=== PATIENT | male | born 1975 | race Caucasian/White ===

== ENCOUNTER 2017-10-29 05:39 | Observation (INO) | payer OTHER ==
[~2017-10-29] VITALS: Ht 167.6 cm; Wt 77.0 kg
[2017-10-29 05:46] VITALS: BP 160/77; PULSE 97; RESP 16; TEMP 98.1; O2SAT 98
[2017-10-29] MEDS ORDERED: ZANT150T2 PO (05:55)
[2017-10-29] MEDS ORDERED: OMEP10SU (05:55)
[2017-10-29] MEDS ORDERED: SODIUM CHLOR 0.9% 1000 ML INJ 1,000 ML IV SCH ×2 (05:59→09:43)
[2017-10-29] MEDS ORDERED: ONDANSETRON HCL 4 MG/2 ML VIAL ONE (05:59)
--- NOTE | 2017-10-29 05:59 | PD ---
HPI Chief Complaint: Abdominal Pain Time Seen by Provider: 05:56 Travel History International Travel<30 days: No Contact w/Intl Traveler<30days: No Traveled to known affect area: No History of Present Illness HPI Patient states that he woke up today about 2 hours ago with lower abdominal pain , nausea and vomiting. Pain is described as crampy, sharp, rated as 8 out of 10 , denies any diarrhea. Denies any alleviating or aggravating factors. Denies any associated factors such as fever, rash, neck stiffness, headache, chest pain , back pain. No known drug allergy Past medical history of GERD otherwise patient denies any medical history or surgical history. PFSH Past Medical History GERD: Yes Past Surgical History Surgical History: No Previous Surgery Other Surgery: Yes Social History Alcohol Use: Yes (weekends) Tobacco Use: No Substance Use: No Allergies-Medications (Allergen,Severity, Reaction): Coded Allergies: No Known Allergies (Unverified , 10/29/17) Reported Meds & Prescriptions Reported Meds & Active Scripts Active Reported Zantac (Ranitidine HCl) 150 Mg Tab 150 Mg PO DAILY Prilosec (Omeprazole Magnesium) 10 Mg Pow Review of Systems General / Constitutional: No: Fever Eyes: No: Visual changes HENT: No: Headaches Cardiovascular: No: Chest Pain or Discomfort Respiratory: No: Shortness of Breath Gastrointestinal: Positive: Nausea, Abdominal Pain Genitourinary: No: Dysuria Musculoskeletal: No: Pain Skin: No Rash Neurologic: No: Weakness Psychiatric: No: Depression Endocrine: No: Polydipsia Hematologic/Lymphatic: No: Easy Bruising Physical Exam Narrative GENERAL: SKIN: Warm and dry. HEAD: Atraumatic. Normocephalic. EYES: Pupils equal and round. No scleral icterus. No injection or drainage. ENT: No nasal bleeding or discharge. Mucous membranes pink and moist. NECK: Trachea midline. No JVD. CARDIOVASCULAR: Regular rate and rhythm. RESPIRATORY: No accessory muscle use. Clear to auscultation. Breath sounds equal bilaterally. GASTROINTESTINAL: Abdomen soft, nondistended, patient has tenderness to percussion along McBurney's point as well as suprapubically and left lower quadrant. However the patient does not exhibit any rigidity, guarding, or rebound. MUSCULOSKELETAL: Extremities without clubbing, cyanosis, or edema. No obvious deformities. NEUROLOGICAL: Awake and alert. No obvious cranial nerve deficits. Motor grossly within normal limits. Five out of 5 muscle strength in the arms and legs. Normal speech. PSYCHIATRIC: Appropriate mood and affect; insight and judgment normal. Data Data Last Documented VS Vital Signs Date Time Temp Pulse Resp B/P (MAP) Pulse Ox O2 Delivery O2 Flow Rate FiO2 10/29/17 06:05 89 16 126/90 (102) 99 Room Air 10/29/17 05:46 98.1 Orders Orders Ondansetron Inj (Zofran Inj) (10/29/17 05:59) Complete Blood Count With Diff (10/29/17 05:59) Comprehensive Metabolic Panel (10/29/17 05:59) Lipase (10/29/17 05:59) Urinalysis - C+S If Indicated (10/29/17 05:59) Ct Abd/Pel W Iv Contrast(Rout) (10/29/17 05:59) Iv Access Insert/Monitor (10/29/17 05:59) Ecg Monitoring (10/29/17 05:59) Oximetry (10/29/17 05:59) Morphine Inj (Morphine Inj) (10/29/17 06:00) Ondansetron Inj (Zofran Inj) (10/29/17 06:00) Sodium Chlor 0.9% 1000 Ml Inj (Ns 1000 M (10/29/17 05:59) Labs Laboratory Tests Test 10/29/17 06:05 White Blood Count 14.7 TH/MM3 Red Blood Count 5.46 MIL/MM3 Hemoglobin 16.6 GM/DL Hematocrit 48.5 % Mean Corpuscular Volume 88.7 FL Mean Corpuscular Hemoglobin 30.5 PG Mean Corpuscular Hemoglobin Concent 34.4 % Red Cell Distribution Width 13.0 % Platelet Count 310 TH/MM3 Mean Platelet Volume 7.2 FL Neutrophils (%) (Auto) 67.6 % Lymphocytes (%) (Auto) 22.9 % Monocytes (%) (Auto) 7.4 % Eosinophils (%) (Auto) 1.6 % Basophils (%) (Auto) 0.5 % Neutrophils # (Auto) 10.0 TH/MM3 Lymphocytes # (Auto) 3.4 TH/MM3 Monocytes # (Auto) 1.1 TH/MM3 Eosinophils # (Auto) 0.2 TH/MM3 Basophils # (Auto) 0.1 TH/MM3 CBC Comment DIFF FINAL Differential Comment Total Protein 7.5 GM/DL Alkaline Phosphatase 31 U/L Total Bilirubin 1.0 MG/DL MDM Medical Decision Making Medical Screen Exam Complete: Yes Emergency Medical Condition: Yes Medical Record Reviewed: Yes Differential Diagnosis Appendicitis versus colitis versus diverticulitis versus UTI Narrative Course CBC shows leukocytosis of 14.7 but without any left shift, no anemia, normal platelet count Patient signed out to oncoming physician pending CT results and further lab results Diagnosis Primary Impression: Lower abdominal pain All Lagunas MD Oct 29, 2017 05:58
[2017-10-29] MEDS ORDERED: ONDANSETRON HCL 4 MG/2 ML VIAL IVP ONE (06:00)
[2017-10-29] MEDS ORDERED: MORPHINE SULFATE 4 MG/ML INJ IV PUSH ONE (06:00)
[2017-10-29 06:05] VITALS: BP 126/90; PULSE 89; RESP 16; O2SAT 99
[2017-10-29 06:23] LABS: BASOPHIL # 0.1 TH/MM3 (0-0.2); BASOPHIL % 0.5 % (0.0-2.0); EOSINOPHIL # 0.2 TH/MM3 (0-0.4); EOSINOPHIL % 1.6 % (0.0-4.0); HEMATOCRIT 48.5 % (39.0-51.0); HEMOGLOBIN 16.6 GM/DL (13.0-17.0); LYMPH % 22.9 % (9.0-44.0); LYMPHOCYTE # 3.4 TH/MM3 (1.0-4.8); MEAN CELL VOLUME 88.7 FL (80.0-100.0); MEAN CORPUSCULAR HEMOGLOBIN 30.5 PG (27.0-34.0); MEAN CORPUSCULAR HGB CONC 34.4 % (32.0-36.0); MEAN PLATELET VOLUME 7.2 FL (7.0-11.0); MONO % 7.4 % (0.0-8.0); MONOCYTE # 1.1 TH/MM3 (0-0.9); NEUT % 67.6 % (16.0-70.0); PLATELET COUNT 310 TH/MM3 (150-450); RED BLOOD COUNT 5.46 MIL/MM3 (4.50-5.90); WHITE BLOOD COUNT 14.7 TH/MM3 (4.0-11.0)
[2017-10-29 06:35] LABS: ALKALINE PHOSPHATASE 31 U/L (45-117); TOTAL PROTEIN 7.5 GM/DL (6.4-8.2)
[2017-10-29 06:54] LABS: ALBUMIN 4.3 GM/DL (3.4-5.0); ALT (GPT) 33 U/L (12-78); AST (GOT) 26 U/L (15-37); BICARBONATE 23.4 MEQ/L (21.0-32.0); BLOOD UREA NITROGEN 16 MG/DL (7-18); CALCIUM 8.9 MG/DL (8.5-10.1); CHLORIDE 106 MEQ/L (98-107); CREATININE 1.29 MG/DL (0.60-1.30); GLOMERULAR FILTRATION RATE 62 ML/MIN (>89); GLUCOSE,RANDOM 92 MG/DL (74-106); SODIUM (NA) 139 MEQ/L (136-145)
[2017-10-29] MEDS ORDERED: IOHEXOL 350 MG/ML 10 ML VIAL (for RAD DIAG) IVCONTRAST ONE (07:33)
--- NOTE | 2017-10-29 07:39 | PD ---
Physical Exam Narrative Patient was seen by ED physician and signed out to me. Data Data Last Documented VS Vital Signs Date Time Temp Pulse Resp B/P (MAP) Pulse Ox O2 Delivery O2 Flow Rate FiO2 10/29/17 06:05 89 16 126/90 (102) 99 Room Air 10/29/17 05:46 98.1 Orders Orders Ondansetron Inj (Zofran Inj) (10/29/17 05:59) Complete Blood Count With Diff (10/29/17 05:59) Comprehensive Metabolic Panel (10/29/17 05:59) Lipase (10/29/17 05:59) Urinalysis - C+S If Indicated (10/29/17 05:59) Ct Abd/Pel W Iv Contrast(Rout) (10/29/17 05:59) Iv Access Insert/Monitor (10/29/17 05:59) Ecg Monitoring (10/29/17 05:59) Oximetry (10/29/17 05:59) Morphine Inj (Morphine Inj) (10/29/17 06:00) Ondansetron Inj (Zofran Inj) (10/29/17 06:00) Sodium Chlor 0.9% 1000 Ml Inj (Ns 1000 M (10/29/17 05:59) Iohexol 350 Inj (Omnipaque 350 Inj) (10/29/17 07:33) Metoclopramide Inj (Reglan Inj) (10/29/17 08:00) Diphenhydramine Inj (Benadryl Inj) (10/29/17 08:00) Labs Laboratory Tests Test 10/29/17 06:05 10/29/17 08:11 White Blood Count 14.7 TH/MM3 Red Blood Count 5.46 MIL/MM3 Hemoglobin 16.6 GM/DL Hematocrit 48.5 % Mean Corpuscular Volume 88.7 FL Mean Corpuscular Hemoglobin 30.5 PG Mean Corpuscular Hemoglobin Concent 34.4 % Red Cell Distribution Width 13.0 % Platelet Count 310 TH/MM3 Mean Platelet Volume 7.2 FL Neutrophils (%) (Auto) 67.6 % Lymphocytes (%) (Auto) 22.9 % Monocytes (%) (Auto) 7.4 % Eosinophils (%) (Auto) 1.6 % Basophils (%) (Auto) 0.5 % Neutrophils # (Auto) 10.0 TH/MM3 Lymphocytes # (Auto) 3.4 TH/MM3 Monocytes # (Auto) 1.1 TH/MM3 Eosinophils # (Auto) 0.2 TH/MM3 Basophils # (Auto) 0.1 TH/MM3 CBC Comment DIFF FINAL Differential Comment Blood Urea Nitrogen 16 MG/DL Creatinine 1.29 MG/DL Random Glucose 92 MG/DL Total Protein 7.5 GM/DL Albumin 4.3 GM/DL Calcium Level 8.9 MG/DL Alkaline Phosphatase 31 U/L Aspartate Amino Transf (AST/SGOT) 26 U/L Alanine Aminotransferase (ALT/SGPT) 33 U/L Total Bilirubin 1.0 MG/DL Sodium Level 139 MEQ/L Potassium Level 3.8 MEQ/L Chloride Level 106 MEQ/L Carbon Dioxide Level 23.4 MEQ/L Anion Gap 10 MEQ/L Estimat Glomerular Filtration Rate 62 ML/MIN Lipase 115 U/L Urine Color YELLOW Urine Turbidity CLEAR Urine pH 6.0 Urine Specific [place] GREATER THAN 1.050 Urine Protein TRACE mg/dL Urine Glucose (UA) NEG mg/dL Urine Ketones 40 mg/dL Urine Occult Blood SMALL Urine Nitrite NEG Urine Bilirubin NEG Urine Urobilinogen LESS THAN 2.0 MG/DL Urine Leukocyte Esterase NEG Urine RBC 2 /hpf Urine WBC 1 /hpf Urine Mucus FEW /lpf Microscopic Urinalysis Comment CULT NOT INDICATED MDM Supervised Visit with ARIEL: No Interpretation(s) 7:38 AM. CBC with WBC 14.7. Normal differential. CMP within normal limits. 8:28 AM. Last Impressions Abdomen/Pelvis CT 10/29/17 0559 Signed Impressions: Service Date/Time: Sunday, October 29, 2017 07:31 - CONCLUSION: Normal examination. Salomon Dorado MD Narrative Course Patient with right lower quadrant abdominal pain and nausea vomiting. Normal saline solution 1 L IV bolus. Zofran 8 mg IV. Reglan 10 mg IV. Benadryl 25 mg IV. Normal saline solution 1 25 cc an hour. Zosyn 3.375 g IV given. Diagnosis Primary Impression: Acute appendicitis Qualified Codes: K35.3 - Acute appendicitis with localized peritonitis Admitting Information Admitting Physician Requests: Admit Yayo Barcenas MD Oct 29, 2017 07:39
[2017-10-29] MEDS ORDERED: METOCLOPRAMIDE HCL 10 MG/2 ML VIAL IV PUSH ONE (08:00)
[2017-10-29] MEDS ORDERED: diphenhydrAMINE HCL 50 MG/ML VIAL IV PUSH ONE (08:00)
--- NOTE | 2017-10-29 08:09 | RADRPT ---
EXAM DATE/TIME: 10/29/2017 07:31 This report includes an Addendum and supersedes previous reports for this exam. [facility] COMPARISON: No previous studies available for comparison. INDICATIONS : Vomiting and epigastric pain. IV CONTRAST: 92 cc Omnipaque 350 (iohexol) IV ORAL CONTRAST: No oral contrast ingested. RADIATION DOSE: 6.34 CTDIvol (mGy) MEDICAL HISTORY : None SURGICAL HISTORY : None. ENCOUNTER: Initial ACUITY: 2 days PAIN SCALE: 5/10 LOCATION: epigastric TECHNIQUE: Volumetric scanning of the abdomen and pelvis was performed. Using automated exposure control and ad justment of the mA and/or kV according to patient size, radiation dose was kept as low as reasonably achievable to obtain optimal diagnostic quality images. DICOM format image data is available electro nically for review and comparison. FINDINGS: LOWER LUNGS: The visualized lower lungs are clear. LIVER: Homogeneous density without lesion. There is no dilation of the biliary tree. No calcified gallston es. SPLEEN: Normal size without lesion. PANCREAS: Within normal limits. KIDNEYS: Normal in size and shape. There is no mass, stone or hydronephrosis. ADRENAL GLANDS: Within normal limits. VASCULAR: There is no aortic aneurysm. BOWEL/MESENTERY: The stomach, small bowel, and colon demonstrate no acute abnormality. There is no free intraperitone al air or fluid. ABDOMINAL WALL: Within normal limits. RETROPERITONEUM: There is no lymphadenopathy. BLADDER: No wall thickening or mass. REPRODUCTIVE: Within normal limits. INGUINAL: There is no lymphadenopathy or hernia. MUSCULOSKELETAL: Within normal limits for patient age. CONCLUSION: Normal examination. Salomon Dorado MD on October 29, 2017 at 7:50 Board Certified Radiologist. This report was verified electronically. ADDENDUM: Upon review of this examination is felt that there are mild periappendiceal inflammatory changes as w ell as mildly dilated fluid-filled appendix and probable fecaliths suggesting acute appendicitis with out appendiceal abscess. The findings were discussed with Dr. Barcenas at 8:40 AM on 10/29/17. Freeman Chew MD on October 29, 2017 at 8:40 Board Certified Radiologist. This report was verified electronically.
[2017-10-29 08:33] LABS: BILIRUBIN, URINE NEG (NEG); BLOOD, URINE SMALL (NEG); GLUCOSE,URINE NEG (NEG); KETONE, URINE 40 mg/dL (NEG); MUCUS URINE FEW /lpf (OCC); NITRITE,URINE NEG (NEG); URINE COLOR YELLOW (YELLW/STRAW); URINE LEUKOCYTE ESTERASE NEG (NEG)
[2017-10-29] MEDS: SODIUM CHLOR 0.9% 1000 ML INJ 1,000 ML IV SCH ×3 (08:55→21:24)
[2017-10-29] MEDS ORDERED: PIPERACIL-TAZO 3.375 GM PREMIX 50 ML IV ONE (09:00)
[2017-10-29] MEDS ORDERED: SODIUM CHLORIDE 0.9% FLUSH 10 ML FLUSH IV FLUSH PRN (09:45)
[2017-10-29 10:05] VITALS: BP 126/70; PULSE 80; RESP 17; O2SAT 96
[2017-10-29] MEDS: MORPHINE SULFATE 2 MG/ML INJ IV PUSH PRN ×2 (10:09→17:29)
--- NOTE | 2017-10-29 10:42 | MH ---
cc: Silvestre Pitt MD DATE OF ADMISSION: 10/29/2017 CHIEF COMPLAINT: Abdominal pain, acute appendicitis. HISTORY OF PRESENT ILLNESS: The patient is a 41-year-old male who presents with acute onset of right lower quadrant abdominal pain. He states the pain started this morning and woke him up from sleep. He described the pain as an 8/10, currently is a 4/10. He also had some nausea and vomiting. He says the pain was worse with movement, better with lying still. He came into the emergency department for further evaluation including CT scan showing acute appendicitis, leukocytosis of 14.7. He has never had pain quite like this. He is otherwise relatively healthy with otherwise just reflux disease. PAST MEDICAL HISTORY: GERD. PAST SURGICAL HISTORY: No abdominal surgeries, a hand surgery. SOCIAL HISTORY: Denies smoking. Occasional ETOH. Denies IVDA. ALLERGIES: NO KNOWN DRUG ALLERGIES. MEDICATIONS: Zantac, Prilosec. FAMILY HISTORY: Denies coronary artery disease or hypertension. REVIEW OF SYSTEMS: GENERAL: Denies fevers. Complains of subjective chills. HEENT: Denies eye pain or ear pain. NECK: Denies swelling or pain. HEART: Denies palpitations or chest pain. RESPIRATORY: Denies cough or shortness of breath. : Denies dysuria. GI: Complains of nausea and abdominal pain. INTEGUMENT: Denies any rash or lesion. NEUROLOGIC: Denies numbness or tingling. ENDOCRINE: Denies polyuria or polydipsia. PHYSICAL EXAM: GENERAL: The patient is in no acute distress. VITAL SIGNS: Temperature 98.1, pulse 89, respirations 16, blood pressure 126/90, saturation 99%. HEENT: Pupils equal, round and reactive. NECK: Supple. Trachea midline. LUNGS: Clear to auscultation. Bilateral expansion. HEART: S1, S2, regular rhythm. ABDOMEN: Soft, positive tenderness to palpation right lower quadrant. Minimal right lower quadrant rebound tenderness. EXTREMITIES: Warm, well perfused. NEUROLOGIC: GCS 15, 5/5 motor all extremities. PSYCH: Appropriate mood, appropriate affect. BACK: Normal curvature. LABORATORY AND DIAGNOSTIC DATA: WBC 14.7, hemoglobin 16.6, hematocrit 48.5, platelets 310. Sodium 139, potassium 3.8, chloride 106, BUN 16, creatinine 1.2, AST 26, ALT 33, alkaline phosphatase 31, lipase 115. CT reviewed by myself shows an acute appendicitis without evidence of free air, perforation or abscess. ASSESSMENT: Patient is a 41-year-old male with acute onset of abdominal pain consistent with acute appendicitis. PLAN: After a full clinical workup, patient with the above-named issues including acute appendicitis. At this point, the patient needs to be NPO, IV pain control, IV fluids, IV antibiotics. We will plan for laparoscopic appendectomy. Discussed with the patient in detail. He states understanding and agrees and would like to proceed. MD FOSTER Godoy/CHRISTIAN , 10:09 AM , 10:40 AM
[2017-10-29] MEDS ORDERED: LIDOCAINE HCL 1% PF 5 ML SYRINGE OTHER ONE (12:00)
[2017-10-29] MEDS ORDERED: NEOSTIGMINE 5 MG/5 ML SYRINGE IV PUSH ONE (12:00)
[2017-10-29] MEDS ORDERED: PROPOFOL 200 MG/20 ML AMP IV ONE (12:00)
[2017-10-29] MEDS ORDERED: DEXAMETHASONE SOD PHOS 4 MG/ML VIAL IV ONE (12:00)
[2017-10-29] MEDS ORDERED: SODIUM CHLORIDE 0.9% 20 ML VIAL IV ONE (12:00)
[2017-10-29] MEDS ORDERED: ONDANSETRON HCL 4 MG/2 ML VIAL IV ONE (12:00)
[2017-10-29] MEDS ORDERED: KETOROLAC TROMETHAMINE 30 MG/ML (IVP) VIAL IV PUSH ONE (12:00)
[2017-10-29] MEDS ORDERED: GLYCOPYRROLATE 1 MG/5 ML SYRINGE IV PUSH ONE (12:00)
[2017-10-29] MEDS ORDERED: ROCURONIUM INJ 50 MG/5 ML SYRINGE IV PUSH ONE (12:00)
[2017-10-29] MEDS ORDERED: ceFAZolin INJ 1,000 MG VIAL IV ONE (12:00)
[2017-10-29] MEDS ORDERED: SUCCINYLCHOLINE CHLORIDE 100 MG/5 ML SYRINGE IV PUSH ONE (12:00)
[2017-10-29] MEDS ORDERED: BUPIVACAINE/EPINEPHRINE 0.25% 50 ML VIAL ONE (12:05)
--- NOTE | 2017-10-29 12:44 | HHI.PR ---
Immediate Post Op Note Procedure Date: Oct 29, 2017 Pre Op Diagnosis: acute appendicitis Post Op Diagnosis: same Surgeon: Silvestre Pitt MD Critical Care Nurse Practitioner(s): neda Procedure: lap appy Findings: distended appendix Complications: none Specimen(s) removed: appendix Estimated blood loss: 5cc Anesthesia: General Drains: None Patient to: PACU Patient Condition: Good Silvestre Pitt MD Oct 29, 2017 12:44
[2017-10-29] MEDS ORDERED: DO NOT ADM ANY ANTICOAGULANT DRUGS PRN (13:40)
--- NOTE | 2017-10-29 14:39 | MP ---
cc: Silvestre iPtt MD DATE OF OPERATION: 10/29/2017 PREOPERATIVE DIAGNOSIS: Acute appendicitis. POSTOPERATIVE DIAGNOSIS: Acute appendicitis. PROCEDURE PERFORMED: Laparoscopic appendectomy. SURGEON: Dr. Silvestre Pitt. EMPLOYEE SERVICE OFFICER: Geri. ANESTHESIA: GETA. IV FLUIDS: See anesthesia sheet. ESTIMATED BLOOD LOSS: 5 cc. DRAINS: None. COMPLICATIONS: None. WOUND CLASSIFICATION: Clean, contaminated. FINDINGS: Distended, indurated appendix and small hemorrhagic epiploicae. SPECIMENS: 1. Appendix. 2. Epiploicae. INDICATIONS: The patient is a 41-year-old male who presented with acute onset of right lower quadrant abdominal pain. He had a leukocytosis of 14.[address] scan showed an acute appendicitis. Therefore decision was made for laparoscopic appendectomy. DETAILS OF PROCEDURE: The patient was taken to the operating suite, placed in supine position. He was prepped and draped in the usual sterile fashion after induction of general endotracheal anesthesia. A brief time out was done stating the correct patient, procedure and surgical site. We were all in agreement with this. Attention was first directed to the umbilicus, local anesthetic injected. A 5-mm Visiport was used to enter the abdomen safely. The abdomen was insufflated to 15 mm pneumoperitoneum. Cursory inspection noted no evidence of injury. The patient had two other ports placed, one in the left lower quadrant a 12 mm, followed by a 5 mm suprapubic. This was done using local anesthetic and under direct visualization. The patient was placed in Trendelenburg, airplaned to the left. On inspection the appendix was noted to be very long and somewhat indurated at the tip. Also there was a small little hemorrhagic epiploic appendices that was noted on the sigmoid colon on the other side. A small window was made in the mesentery of the appendix in the mesoappendix with monopolar [place]. Endo-NICHOLE 35 stapler was used to transect the base of the appendix. Next the mesoappendix was also transected. Both were done with 35 endo-NICHOLE stapler. The appendix was placed in an Endo Catch bag and removed from the abdomen. The small hemorrhagic epiploicae on the left lower quadrant of the sigmoid was also removed with monopolar cautery. This was also placed as specimen. Hemostasis was obtained with monopolar to the staple site. Pneumoperitoneum was removed. The trocars were removed. The left lower quadrant trocar site was closed with a 0 Vicryl [id number] on a UR-6, 4-0 Monocryl used for subcuticular sutures, sterile dressing placed including Mastisol and Steri-Strips. All lap and instrument counts were correct at the end of the procedure. The patient tolerated the procedure well. There was no intraoperative complication. MD FOSTER Godoy/CLAUDINE , 01:38 PM , 02:37 PM
[2017-10-29 16:00] VITALS: BP 131/81; PULSE 65; RESP 17; TEMP 95.5; O2SAT 97
[2017-10-29] MEDS: PIPERACIL-TAZO 3.375 GM PREMIX 50 ML IV SCH (17:25)
[2017-10-29 20:00] VITALS: BP 137/80; PULSE 58; RESP 18; TEMP 98.6; O2SAT 97
[2017-10-29] MEDS: SODIUM CHLORIDE 0.9% FLUSH 10 ML FLUSH IV FLUSH SCH (21:00)
[2017-10-29] MEDS ORDERED: MORPHINE SULFATE 2 MG/ML INJ IV PUSH PRN (22:15)
[2017-10-30] VITALS: BP 130/72; PULSE 82; RESP 16; TEMP 98.6; O2SAT 94
[2017-10-30] MEDS: PIPERACIL-TAZO 3.375 GM PREMIX 50 ML IV SCH ×2 (00:38→08:49)
[2017-10-30 04:00] VITALS: BP 128/74; PULSE 74; RESP 18; TEMP 98.6; O2SAT 99
[2017-10-30] MEDS: SODIUM CHLOR 0.9% 1000 ML INJ 1,000 ML IV SCH (06:44)
[2017-10-30 08:00] VITALS: BP 128/74; PULSE 68; RESP 18; TEMP 97; O2SAT 95
[2017-10-30] MEDS: SODIUM CHLORIDE 0.9% FLUSH 10 ML FLUSH IV FLUSH SCH (08:38)
[2017-10-30] MEDS ORDERED: ACETAMINOPHEN/HYDROcodone 325 MG/5 MG TAB PO PRN ×2 (12:15)
[2017-10-30] MEDS ORDERED: HYDR-3516 PO (12:28)
--- NOTE | 2017-10-30 13:08 | HHI.DS ---
Discharge Summary Admission Date Oct 29, 2017 at 09:31 Discharge Date: Oct 30, 2017 Admitting Diagnosis Acute appendicitis Brief History The patient was taken to the OR for laparoscopic appendectomy CBC/BMP: 10/29/17 0605 10/29/17 0605 Significant Findings Laboratory Tests Test 10/29/17 06:05 10/29/17 08:11 White Blood Count 14.7 TH/MM3 (4.0-11.0) Neutrophils # (Auto) 10.0 TH/MM3 (1.8-7.7) Monocytes # (Auto) 1.1 TH/MM3 (0-0.9) Alkaline Phosphatase 31 U/L (45-117) Estimat Glomerular Filtration Rate 62 ML/MIN (>89) Urine Specific [place] GREATER THAN 1.050 Urine Ketones 40 mg/dL (NEG) Urine Occult Blood SMALL (NEG) Urine Mucus FEW /lpf (OCC) PE at Discharge Alert and awake Cardio: RRR Resp: CTAB Abd: lap sites c/d/i Hospital Course This is a 41 year old male POD1 lap appy. The patient's diet was advanced to a regular diet. The patient's pain was controlled using oral pain medications. The patient will follow up with his PCP once back in [place]. Pt Condition on Discharge: Good Discharge Disposition: Discharge Home Discharge Instructions DIET: Follow Instructions for: As Tolerated, No Restrictions Activities you can perform: See Additionl Instruction Other Activity Instructions: Okay to shower this evening; pat incisions dry Avoid heavy pushing pulling or lifting Pamela De Leon/[place] VORA Oct 30, 2017 13:08
== END 2017-10-30 13:02 | disposition home or self-care (01) ==
LOC: NEPE 05:39 → NEDA 09:31 → INTOOBSV 09:31 → N07B 16:04
PROVIDERS: ADMIT Surgery; ATTEND Surgery
DX: K35.80 Unspecified acute appendicitis (principal); K21.9 Gastro-esophageal reflux disease without esophagitis
CPT/HCPCS: 00840; 44970; 74177; 80053; 81001; 83690; 85025; 88304; 88305; 96361; 96365; 96366; 96375; 96376; 99285; G0378; J0330; J0690; J1100; J1200; J1885; J2270; J2405; J2543; J2710; J2765; J3010; J7030; Q9967